=== PATIENT | male | born 1990 | race African-American/Black ===

== ENCOUNTER 2017-08-25 23:18 | Emergency (ER) | payer SELFPAY ==
[2017-08-25] MEDS ORDERED: HYDROcodone/Acetaminophen 5/325 mg Tablet ONE (23:32)
[2017-08-25] MEDS ORDERED: Ketorolac Tromethamine 60 MG/2 ML VIAL ONE ×2 (23:33→23:37)
[2017-08-25] MEDS ORDERED: Acetaminophen 325 MG TAB ONE (23:33)
== END 2017-08-26 00:05 | disposition home or self-care (01) ==
LOC: MADERS 23:18
DX: K02.9 Dental caries, unspecified (principal); F17.210 Nicotine dependence, cigarettes, uncomplicated
CPT/HCPCS: 96372; J1885

== ENCOUNTER 2017-09-18 19:13 | Emergency (ER) | payer SELFPAY ==
[2017-09-18] MEDS ORDERED: Ketorolac Tromethamine 30 MG/ML VIAL ONE (19:41)
== END 2017-09-18 20:04 | disposition home or self-care (01) ==
LOC: MADERS 19:13
DX: K04.7 Periapical abscess without sinus (principal); F17.210 Nicotine dependence, cigarettes, uncomplicated; K02.9 Dental caries, unspecified; K03.81 Cracked tooth
CPT/HCPCS: 96372; J1885

== ENCOUNTER 2023-01-07 17:34 | Emergency (ER) | payer SELFPAY ==
[2023-01-07] MEDS ORDERED: Boostrix 0.5 ML (Tdap) VIAL (>/=7 yrs of age) ONE (18:48)
[2023-01-07] MEDS ORDERED: Bacitracin 1 PK ONE (18:48)
== END 2023-01-07 19:05 | disposition home or self-care (01) ==
LOC: MADERS 17:34
DX: S61.211A Laceration without foreign body of left index finger without damage to nail, initial encounter (principal); W26.8XXA Contact with other sharp object(s), not elsewhere classified, initial encounter; Z23 Encounter for immunization
CPT/HCPCS: 90471; 90715